=== PATIENT | female | born 1955 | race Caucasian/White ===

== ENCOUNTER 2017-09-03 22:52 | Emergency (ER) | payer OTHER ==
[~2017-09-03] VITALS: Ht 157.5 cm; Wt 63.5 kg
== END 2017-09-03 23:15 | disposition home or self-care (01) ==
LOC: ER 22:52
DX: L50.1 Idiopathic urticaria (principal); I10 Essential (primary) hypertension; E03.9 Hypothyroidism, unspecified
CPT/HCPCS: 99282